=== PATIENT | male | born 1945 | race African-American/Black ===

== ENCOUNTER 2022-04-04 14:44 | Emergency (ER) | payer MEDICARE, MEDICAID ==
[~2022-04-04] VITALS: Ht 190.5 cm; Wt 100.0 kg
[2022-04-04] MEDS ORDERED: SODIUM CHLORIDE 0.9% 1000ML BAG (SEPSIS BOLUS) IV ONE (15:15)
[2022-04-04 15:37] LABS: BASOPHILS % 0.8 % (0.0-2.0); EOSINOPHILS % 2.3 % (0.0-5.0); HEMATOCRIT. 33.7 % (42.0-52.0); HEMOGLOBIN. 11.3 g/dL (14.0-18.0); LYMPHOCYTES % 13.3 % (20.0-50.0); MEAN CORPUSCULAR HEMOGLOBIN 36.3 pg (28.0-32.0); MEAN CORPUSCULAR VOLUME 107.9 fL (80.0-94.0); MEAN PLATELET VOLUME 8.3 fl (7.4-10.4); MONOCYTES % 11.3 % (2.0-8.0); NEUTROPHILS % 72.3 % (40.0-76.0); PLATELET 237 x1000/uL (130-400); RED BLOOD CELL COUNT 3.12 mill/uL (4.7-6.1); RED CELL DISTRIBUTION WIDTH 16.8 % (11.6-14.6)
[2022-04-04 15:47] LABS: CHLORIDE 105 mEq/L (98-107)
[2022-04-04] MEDS ORDERED: POTASSIUM CHLORIDE 20MEQ TABLET SR PO NR (16:45)
[2022-04-04] MEDS ORDERED: POTA-205 MT (17:58)
[2022-04-04 18:20] VITALS: BP 126/81
== END 2022-04-04 18:30 | disposition home or self-care (01) ==
LOC: ER 14:57 → CANBEDREQ 17:39 → ER 18:30
DX: E87.6 Hypokalemia (principal); I11.0 Hypertensive heart disease with heart failure; I50.9 Heart failure, unspecified; J44.9 Chronic obstructive pulmonary disease, unspecified
CPT/HCPCS: 36415; 71045; 80053; 83605; 83880; 84145; 84484; 85025; 87040; 93005; 96360; 96361; 99285; J7030

== ENCOUNTER 2022-09-20 06:48 | Inpatient (IN) | payer MEDICARE, MEDICAID ==
[~2022-09-20] VITALS: Ht 180.3 cm; Wt 124.8 kg
[~2022-09-20 06:48] MED LIST: POTA-205 MT
[2022-09-20] MEDS ORDERED: ONDANSETRON HCL 4MG/2ML INJ IV ONE (07:30)
[2022-09-20] MEDS ORDERED: SODIUM CHLORIDE 0.9% 1,000 ML IV ONE (07:30)
[2022-09-20] MEDS ORDERED: FAMOTIDINE 20MG/2ML VIAL IV ONE (07:30)
[2022-09-20 09:15] LABS: CLARITY URINE CLEAR (CLEAR); COLOR URINE DARK YELLOW (YELLOW); KETONES URINE TRACE (NEGATIVE); LEUKOCYTE ESTERASE URINE 2+ (NEGATIVE); NITRITE URINE NEGATIVE (NEGATIVE); OCCULT BLOOD URINE NEGATIVE (NEGATIVE); PROTEIN URINE 1+ (NEGATIVE); SPECIFIC GRAVITY URINE 1.015 (1.005-1.030)
[2022-09-20] MEDS ORDERED: KETOROLAC 15MG/ML VIAL IV SCH (09:15)
[2022-09-20 09:22] LABS: MEAN CORPUSCULAR HEMOGLOBIN 37.4 pg (28.0-32.0); MEAN CORPUSCULAR VOLUME 110.4 fL (80.0-94.0); MEAN PLATELET VOLUME 8.5 fl (7.4-10.4); PLATELET 431 x1000/uL (130-400); RED CELL DISTRIBUTION WIDTH 20.3 % (11.6-14.6)
[2022-09-20 09:24] LABS: HEMATOCRIT. 19.9 % (42.0-52.0); HEMOGLOBIN. 6.7 g/dL (14.0-18.0)
[2022-09-20 09:34] LABS: CHLORIDE 103 mEq/L (98-107)
[2022-09-20] MEDS ORDERED: CEFTRIAXONE 1 G PREMIX 50 ML IV NR (09:45)
[2022-09-20 10:05] LABS: PLATELET ESTIMATE SLIGHTLY INCREASED
[2022-09-20] MEDS ORDERED: POTASSIUM CHLORIDE 20MEQ/PACKET PO NR (10:44)
[2022-09-20] MEDS ORDERED: CALCIUM GLUCONATE 100MG/ML 10ML VIAL IV NR (11:00)
[2022-09-20] MEDS ORDERED: IOHEXOL-300 100 ML BOTTLE ONE (11:21)
[2022-09-20] MEDS ORDERED: GUAIFENESIN 200MG/10ML SUGAR FREE UDC PO PRN (13:00)
[2022-09-20] MEDS ORDERED: DOCUSATE SODIUM 100MG CAPSULE PO PRN (13:00)
[2022-09-20] MEDS ORDERED: ONDANSETRON HCL 4MG/2ML INJ IV PRN (13:00)
[2022-09-20] MEDS ORDERED: CLONIDINE 0.1MG TABLET PO PRN (13:00)
[2022-09-20] MEDS ORDERED: ACETAMINOPHEN 325MG TABLET PO PRN (13:00)
[2022-09-20] MEDS: THIAMINE HCL 100MG TABLET PO SCH (13:09)
[2022-09-20] MEDS: METRONIDAZOLE 500 MG PREMIX 100 ML IV SCH ×2 (14:00→22:07)
[2022-09-20 16:09] LABS: FOLIC ACID (FOLATE) SERUM 2.6 ng/mL (>5.38)
[2022-09-20 16:29] LABS: TOTAL IRON BINDING CAPACITY 118 ug/dL (250-450)
[2022-09-20] MEDS ORDERED: LORAZEPAM 2MG/ML CPJ IV PRN (18:15)
[2022-09-20 23:30] VITALS: BP 122/77
[2022-09-21] VITALS: BP 122/77
[2022-09-21 04:00] VITALS: BP 91/61
[2022-09-21 06:13] LABS: BASOPHILS % 0.4 % (0.0-2.0); EOSINOPHILS % 2.5 % (0.0-5.0); HEMATOCRIT. 22.4 % (42.0-52.0); HEMOGLOBIN. 7.9 g/dL (14.0-18.0); LYMPHOCYTES % 11.6 % (20.0-50.0); MEAN CORPUSCULAR HEMOGLOBIN 36.1 pg (28.0-32.0); MEAN CORPUSCULAR VOLUME 102.3 fL (80.0-94.0); MEAN PLATELET VOLUME 7.1 fl (7.4-10.4); NEUTROPHILS % 74.5 % (40.0-76.0); PLATELET 289 x1000/uL (130-400); RED BLOOD CELL COUNT 2.19 mill/uL (4.7-6.1)
[2022-09-21] MEDS: METRONIDAZOLE 500 MG PREMIX 100 ML IV SCH ×3 (07:10→22:27)
[2022-09-21 08:00] VITALS: BP 115/76
[2022-09-21 08:01] LABS: CHLORIDE 103 mEq/L (98-107)
[2022-09-21] MEDS ORDERED: LEVOFLOXACIN 750MG PREMIX 150 ML IV NR (08:15)
[2022-09-21 08:16] LABS: HDL CHOLESTEROL 23 mg/dL (40-59); LDL CHOLESTEROL 42 mg/dL (5-100); T4 FREE 1.18 ng/dL (0.76-1.46)
[2022-09-21] MEDS ORDERED: FUROSEMIDE 40MG/4ML VIAL IV SCH (09:00)
[2022-09-21] MEDS: THIAMINE HCL 100MG TABLET PO SCH (09:34)
[2022-09-21] MEDS: FOLIC ACID 1MG TABLET PO SCH (09:34)
[2022-09-21] MEDS: FERROUS SULFATE 325MG TABLET PO SCH (09:34)
[2022-09-21] MEDS: PANTOPRAZOLE SODIUM 40 MG/VIAL IV SCH (09:35)
[2022-09-21 12:00] VITALS: BP 110/68
[2022-09-21] MEDS ORDERED: POTASSIUM CHLORIDE INJ 40 MEQ in DEXT 5% WATER 250 ML IV ONE (12:15)
[2022-09-21 16:00] VITALS: BP 109/71
[2022-09-21] MEDS: KCL 20MEQ/100ML PREMIX 100 ML IV SCH ×2 (16:41→20:00)
[2022-09-21] MEDS ORDERED: KCL 20MEQ/100ML PREMIX 100 ML IV SCH (19:15)
[2022-09-21 20:00] VITALS: BP 116/64
[2022-09-22] VITALS: BP 134/66
[2022-09-22 04:00] VITALS: BP 109/62
[2022-09-22] MEDS: METRONIDAZOLE 500 MG PREMIX 100 ML IV SCH ×3 (05:26→23:51)
[2022-09-22 06:37] LABS: BASOPHILS % 0.4 % (0.0-2.0); EOSINOPHILS % 2.6 % (0.0-5.0); HEMATOCRIT. 23.1 % (42.0-52.0); HEMOGLOBIN. 8.1 g/dL (14.0-18.0); LYMPHOCYTES % 9.6 % (20.0-50.0); MEAN CORPUSCULAR VOLUME 103.2 fL (80.0-94.0); MEAN PLATELET VOLUME 7.5 fl (7.4-10.4); MONOCYTES % 10.1 % (2.0-8.0); NEUTROPHILS % 77.3 % (40.0-76.0); PLATELET 307 x1000/uL (130-400); RED BLOOD CELL COUNT 2.24 mill/uL (4.7-6.1)
[2022-09-22 06:56] LABS: CHLORIDE 107 mEq/L (98-107)
[2022-09-22 08:00] VITALS: BP 105/71
[2022-09-22] MEDS ORDERED: POTASSIUM CHLORIDE 20MEQ TABLET SR PO NR ×2 (08:15→14:00)
[2022-09-22] MEDS: PANTOPRAZOLE SODIUM 40 MG/VIAL IV SCH ×2 (08:43→23:51)
[2022-09-22] MEDS: FERROUS SULFATE 325MG TABLET PO SCH (08:43)
[2022-09-22] MEDS: THIAMINE HCL 100MG TABLET PO SCH (08:43)
[2022-09-22] MEDS: FOLIC ACID 1MG TABLET PO SCH (08:43)
[2022-09-22] MEDS: SODIUM CHLORIDE 0.9% 1,000 ML IV SCH ×2 (09:08→21:50)
[2022-09-22 12:00] VITALS: BP 102/73
[2022-09-22 12:00] LABS: INR 1.3; PROTHROMBIN TIME 13.5 sec (9.6-11.0)
[2022-09-22] MEDS ORDERED: LEVOFLOXACIN 750MG PREMIX 150 ML IV SCH (13:00)
[2022-09-22 16:00] VITALS: BP 103/80
[2022-09-22] MEDS: CHLORDIAZEPOXIDE 25MG CAPSULE PO PRN (16:58)
[2022-09-22 20:00] VITALS: BP 111/49
[2022-09-22] MEDS ORDERED: POTASSIUM CHLORIDE 20MEQ/PACKET PO NR (20:30)
[2022-09-23] VITALS: BP 107/77
[2022-09-23 03:41] LABS: HEMATOCRIT. 23.7 % (42.0-52.0); HEMOGLOBIN. 8.1 g/dL (14.0-18.0); MEAN CORPUSCULAR HEMOGLOBIN 35.8 pg (28.0-32.0); MEAN CORPUSCULAR VOLUME 105.1 fL (80.0-94.0); MEAN PLATELET VOLUME 7.1 fl (7.4-10.4); PLATELET 301 x1000/uL (130-400); RED BLOOD CELL COUNT 2.26 mill/uL (4.7-6.1); RED CELL DISTRIBUTION WIDTH 23.6 % (11.6-14.6)
[2022-09-23 03:53] LABS: INR 1.3; PROTHROMBIN TIME 13.6 sec (9.6-11.0)
[2022-09-23 04:00] VITALS: BP 113/73
[2022-09-23 04:28] LABS: CHLORIDE 106 mEq/L (98-107)
[2022-09-23] MEDS: METRONIDAZOLE 500 MG PREMIX 100 ML IV SCH ×3 (06:41→21:24)
[2022-09-23] MEDS ORDERED: KCL 20MEQ/100ML PREMIX 100 ML IV NR (08:00)
[2022-09-23 08:22] VITALS: BP 130/98
[2022-09-23] MEDS: PANTOPRAZOLE SODIUM 40 MG/VIAL IV SCH (08:53)
[2022-09-23] MEDS: FERROUS SULFATE 325MG TABLET PO SCH (08:54)
[2022-09-23] MEDS: FOLIC ACID 1MG TABLET PO SCH (08:54)
[2022-09-23] MEDS: THIAMINE HCL 100MG TABLET PO SCH (08:55)
[2022-09-23] MEDS: CHLORDIAZEPOXIDE 25MG CAPSULE PO PRN (09:02)
[2022-09-23] MEDS ORDERED: KCL 10MEQ/50ML PREMIX 50 ML IV NR (10:00)
[2022-09-23] MEDS ORDERED: PROPOFOL 200MG/20ML VIAL IV ONE (11:07)
[2022-09-23] MEDS: DIPHENHYDRAMINE 50MG/ML VIAL IV PRN (13:07)
[2022-09-23 14:26] LABS: PLATELET ESTIMATE NORMAL
[2022-09-23 20:00] VITALS: BP 100/64
[2022-09-24] VITALS: BP 107/73
[2022-09-24 04:00] VITALS: BP 113/80
[2022-09-24] MEDS: METRONIDAZOLE 500 MG PREMIX 100 ML IV SCH ×3 (05:53→21:49)
[2022-09-24] MEDS ORDERED: LIDOCAINE HCL 1%/EPI 1:200,000 30 ML VIAL ONE (06:07)
[2022-09-24] MEDS ORDERED: GENTAMICIN SULF 40MG/ML 2ML VIAL ONE (06:07)
[2022-09-24] MEDS ORDERED: THROMBIN (BOVINE) 5000 UNITS/VIAL TOP ONE (06:07)
[2022-09-24 07:55] LABS: HEMATOCRIT. 23.8 % (42.0-52.0); HEMOGLOBIN. 8.1 g/dL (14.0-18.0); MEAN CORPUSCULAR HEMOGLOBIN 35.8 pg (28.0-32.0); MEAN CORPUSCULAR VOLUME 104.7 fL (80.0-94.0); MEAN PLATELET VOLUME 7.2 fl (7.4-10.4); PLATELET 296 x1000/uL (130-400); RED BLOOD CELL COUNT 2.28 mill/uL (4.7-6.1); RED CELL DISTRIBUTION WIDTH 22.4 % (11.6-14.6)
[2022-09-24 08:00] VITALS: BP 108/74
[2022-09-24 08:58] LABS: CHLORIDE 110 mEq/L (98-107)
[2022-09-24] MEDS: DIPHENHYDRAMINE 50MG/ML VIAL IV PRN (09:21)
[2022-09-24] MEDS: FOLIC ACID 1MG TABLET PO SCH (09:21)
[2022-09-24] MEDS: FERROUS SULFATE 325MG TABLET PO SCH (09:21)
[2022-09-24] MEDS ORDERED: METOCLOPRAMIDE HCL 10MG/2ML VIAL IV NR (09:45)
[2022-09-24] MEDS ORDERED: KCL 20MEQ/100ML PREMIX 100 ML IV NR ×2 (10:00→21:00)
[2022-09-24] MEDS ORDERED: ACETAMINOPHEN 325MG TABLET PO PRN (10:45)
[2022-09-24] MEDS ORDERED: HYDROCODONE/ACETAMINOPHEN 5/325MG TABLET PO PRN (10:45)
[2022-09-24] MEDS ORDERED: NALOXONE HCL 0.4MG/ML VIAL IV PRN (11:00)
[2022-09-24] MEDS ORDERED: DIATR MEGLU/DIATRIZOATE SOLN 30ML PO SCH (11:00)
[2022-09-24 11:08] LABS: PLATELET ESTIMATE NORMAL
[2022-09-24 12:03] VITALS: BP 101/70
[2022-09-24] MEDS: BUDESONIDE 0.5MG/2ML NEB HHN SCH ×2 (12:49→21:18)
[2022-09-24] MEDS: ALBUTEROL (0.083%) 2.5MG/3ML NEB HHN SCH ×2 (12:49→21:18)
[2022-09-24 16:00] VITALS: BP 130/77
[2022-09-24] MEDS: CALCIUM CARBONATE/VITAMIN D3 500MG TABLET PO SCH (17:08)
[2022-09-24 17:47] LABS: PHOSPHORUS 2.8 mg/dL (2.5-4.9)
[2022-09-24 20:00] VITALS: BP 104/65
[2022-09-24] MEDS: ENOXAPARIN 30MG/0.3ML SYR SUBCUT SCH (21:23)
[2022-09-25] VITALS: BP 110/67
[2022-09-25] MEDS: ALBUTEROL (0.083%) 2.5MG/3ML NEB HHN SCH ×3 (01:56→20:18)
[2022-09-25] MEDS: METRONIDAZOLE 500 MG PREMIX 100 ML IV SCH ×3 (05:39→21:21)
[2022-09-25 06:29] LABS: HEMATOCRIT. 25.8 % (42.0-52.0); HEMOGLOBIN. 8.7 g/dL (14.0-18.0); MEAN CORPUSCULAR HEMOGLOBIN 35.9 pg (28.0-32.0); MEAN CORPUSCULAR VOLUME 106.7 fL (80.0-94.0); MEAN PLATELET VOLUME 7.1 fl (7.4-10.4); PLATELET 278 x1000/uL (130-400); RED BLOOD CELL COUNT 2.42 mill/uL (4.7-6.1); RED CELL DISTRIBUTION WIDTH 22.1 % (11.6-14.6)
[2022-09-25 07:32] LABS: CHLORIDE 112 mEq/L (98-107)
[2022-09-25 08:00] VITALS: BP 118/69
[2022-09-25] MEDS ORDERED: POTASSIUM CHLORIDE 20MEQ TABLET SR PO NR ×2 (08:30→17:00)
[2022-09-25] MEDS: CALCIUM CARBONATE/VITAMIN D3 500MG TABLET PO SCH ×2 (08:55→17:44)
[2022-09-25] MEDS: ENOXAPARIN 30MG/0.3ML SYR SUBCUT SCH ×2 (08:55→21:21)
[2022-09-25] MEDS: FERROUS SULFATE 325MG TABLET PO SCH (08:55)
[2022-09-25] MEDS: FOLIC ACID 1MG TABLET PO SCH (08:56)
[2022-09-25] MEDS: BUDESONIDE 0.5MG/2ML NEB HHN SCH ×2 (09:17→20:18)
[2022-09-25] MEDS ORDERED: FUROSEMIDE 40MG/4ML VIAL IVP NR (10:00)
[2022-09-25 10:52] LABS: NUCLEATED RED BLOOD CELLS 2 /100 WBC; PLATELET ESTIMATE NORMAL
[2022-09-25 12:00] VITALS: BP 114/69
[2022-09-25 16:00] VITALS: BP 100/69
[2022-09-25 20:00] VITALS: BP 144/78
[2022-09-26] VITALS: BP 114/73
[2022-09-26] MEDS: ALBUTEROL (0.083%) 2.5MG/3ML NEB HHN SCH ×3 (00:58→14:33)
[2022-09-26 04:00] VITALS: BP 109/70
[2022-09-26] MEDS: METRONIDAZOLE 500 MG PREMIX 100 ML IV SCH (06:03)
[2022-09-26 06:46] LABS: BASOPHILS % 0.2 % (0.0-2.0); EOSINOPHILS % 1.8 % (0.0-5.0); HEMATOCRIT. 23.2 % (42.0-52.0); HEMOGLOBIN. 7.9 g/dL (14.0-18.0); LYMPHOCYTES % 8.9 % (20.0-50.0); MEAN CORPUSCULAR HEMOGLOBIN 35.6 pg (28.0-32.0); MEAN CORPUSCULAR VOLUME 104.4 fL (80.0-94.0); MEAN PLATELET VOLUME 7.5 fl (7.4-10.4); MONOCYTES % 11.9 % (2.0-8.0); NEUTROPHILS % 77.2 % (40.0-76.0); PLATELET 253 x1000/uL (130-400); RED BLOOD CELL COUNT 2.22 mill/uL (4.7-6.1); RED CELL DISTRIBUTION WIDTH 21.1 % (11.6-14.6)
[2022-09-26 06:50] LABS: CHLORIDE 111 mEq/L (98-107)
[2022-09-26 08:00] VITALS: BP 148/79
[2022-09-26] MEDS ORDERED: POTASSIUM CHLORIDE 20MEQ/PACKET PO NR (09:30)
[2022-09-26] MEDS ORDERED: FUROSEMIDE 40MG/4ML VIAL IVP NR (09:30)
[2022-09-26] MEDS ORDERED: MAGNESIUM OXIDE 400MG TABLET PO NR (11:30)
[2022-09-26] MEDS ORDERED: FURO-151 MT (15:16)
[2022-09-26 16:03] VITALS: BP 130/80
[2022-09-26 16:05] VITALS: BP 130/80
[2022-09-27] MEDS ORDERED: FAMOTIDINE 20MG TABLET PO SCH (09:00)
[2022-09-27 09:11] LABS: ANTI-MYELOPEROXIDASE AB < 0.2 units (0.0-0.9); ANTI-PROTEINASE 3 ABS < 0.2 units (0.0-0.9)
[2022-09-29 15:11] LABS: SACCHAROMYCES CEREVISIAE IGG <20.0 Units (0.0-24.9)
[2022-09-30 13:11] LABS: ATYPICAL P-ANCA <1:20 titer (Neg:<1:20); ATYPICAL pANCA <1:20 titer (Neg:<1:20); CYTOPLASMIC C-ANCA <1:20 titer (Neg:<1:20); PERINUCLEAR P-ANCA <1:20 titer (Neg:<1:20); SACCHAROMYCES CEREVISIAE IGM <20.0 Units (0.0-24.9)
== END 2022-09-26 17:25 | disposition home or self-care (01) | DRG 371 ==
LOC: ER 06:48 → 3WST 11:14 → EDBEDREQTM 11:25 → EDBEDREQ 11:25
PROVIDERS: ADMIT Internal Medicine; ATTEND Internal Medicine
PROC: 30233N1 Transfusion of Nonautologous Red Blood Cells into Peripheral Vein, Percutaneous Approach (ICD-10-PCS; principal; 2022-09-20)
PROC: 0DB78ZX Excision of Stomach, Pylorus, Via Natural or Artificial Opening Endoscopic, Diagnostic (ICD-10-PCS; 2022-09-23)
DX: A04.9 Bacterial intestinal infection, unspecified (principal); N17.0 Acute kidney failure with tubular necrosis; R65.11 Systemic inflammatory response syndrome (SIRS) of non-infectious origin with acute organ dysfunction; E44.0 Moderate protein-calorie malnutrition; E66.2 Morbid (severe) obesity with alveolar hypoventilation; K29.70 Gastritis, unspecified, without bleeding; N39.0 Urinary tract infection, site not specified; I13.0 Hypertensive heart and chronic kidney disease with heart failure and stage 1 through stage 4 chronic kidney disease, or unspecified chronic kidney disease; G82.20 Paraplegia, unspecified; D50.9 Iron deficiency anemia, unspecified; D53.9 Nutritional anemia, unspecified; F10.90 Alcohol use, unspecified, uncomplicated; E83.51 Hypocalcemia; E87.6 Hypokalemia; E88.09 Other disorders of plasma-protein metabolism, not elsewhere classified; K40.90 Unilateral inguinal hernia, without obstruction or gangrene, not specified as recurrent; K76.0 Fatty (change of) liver, not elsewhere classified; K70.9 Alcoholic liver disease, unspecified; I87.8 Other specified disorders of veins; D75.838 Other thrombocytosis; E86.0 Dehydration; M48.061 Spinal stenosis, lumbar region without neurogenic claudication; K70.10 Alcoholic hepatitis without ascites; I48.91 Unspecified atrial fibrillation; I50.9 Heart failure, unspecified; J44.9 Chronic obstructive pulmonary disease, unspecified; M51.16 Intervertebral disc disorders with radiculopathy, lumbar region; N18.9 Chronic kidney disease, unspecified; R74.01 Elevation of levels of liver transaminase levels; D75.839 Thrombocytosis, unspecified; K80.20 Calculus of gallbladder without cholecystitis without obstruction; D63.8 Anemia in other chronic diseases classified elsewhere; E83.42 Hypomagnesemia; R26.9 Unspecified abnormalities of gait and mobility; G89.29 Other chronic pain; M48.02 Spinal stenosis, cervical region; H91.90 Unspecified hearing loss, unspecified ear; F17.210 Nicotine dependence, cigarettes, uncomplicated; Z68.38 Body mass index [BMI] 38.0-38.9, adult; Z99.3 Dependence on wheelchair
CPT/HCPCS: 36415; 71045; 72141; 72146; 72148; 74176; 74177; 76700; 80048; 80053; 80061; 80076; 81003; 82248; 82270; 82607; 82652; 82728; 82746; 83520; 83540; 83550; 83615; 83735; 83880; 84100; 84132; 84439; 84443; 84484; 85025; 85044; 85651; 86256; 86671; 86850; 86900; 86920; 87426; 88305; 93005; 93306; 93970; 94640; 97162; 97165; 97530; 99291; A6261; C9113; C9803; J0610; J0696; J1200; J1580; J1650; J1885; J1940; J1956; J2060; J2405; J2704; J2765; J3480; J3490; J7030; J7626; P9016; Q9963; Q9967; A4315